=== PATIENT | male | born 1980 | race African-American/Black ===

== ENCOUNTER 2016-08-06 16:31 | Observation (INO) | payer MEDICARE ==
[~2016-08-06] VITALS: Ht 180.3 cm; Wt 80.3 kg
[2016-08-06 19:00] VITALS: BP_SYST 148; RESP 20; TEMP 97.7
[2016-08-06] MEDS ORDERED: ACETAMINOPHEN 325 MG TAB PO PRN (19:35)
[2016-08-06] MEDS ORDERED: ONDANSETRON 4 MG VIAL IV PUSH PRN (19:35)
[2016-08-06 20:32] VITALS: Ht 180.3 cm; Wt 80.3 kg
[2016-08-07 02:00] VITALS: BP_SYST 137; RESP 18; TEMP 97.9
[2016-08-07 02:08] VITALS: BP_SYST 163; RESP 20; TEMP 98.2
[2016-08-07 02:10] VITALS: BP_SYST 154; RESP 20; TEMP 97.7
[2016-08-07 07:15] VITALS: BP_SYST 146; RESP 18; TEMP 98
[2016-08-07] MEDS ORDERED: ALPRAZOLAM 0.25 MG TAB PO SCH (09:30)
[2016-08-07] MEDS ORDERED: BUSPIRONE HCL 15 MG TAB PO SCH (09:30)
[2016-08-07] MEDS ORDERED: QUEtiapine 25 MG TAB PO SCH (09:30)
[2016-08-07] MEDS ORDERED: METOPROLOL TART 100 MG TAB PO SCH (09:30)
[2016-08-07 12:04] VITALS: BP_SYST 148; RESP 16; TEMP 97.7
[2016-08-07 14:29] VITALS: BP_SYST 148; RESP 16; TEMP 97.7
[2016-08-08] MEDS ORDERED: ASPIRIN EC 81 MG TAB PO SCH (09:00)
== END 2016-08-07 09:22 | disposition home or self-care (01) ==
LOC: ENRESERVTM → ENRESERVDT → ENPENDDIS 19:25 → 4THE 19:25
PROVIDERS: ADMIT Internal Medicine Nephrology; ATTEND Internal Medicine Nephrology
CPT/HCPCS: G0378; J2405

== ENCOUNTER 2016-09-04 19:17 | Emergency (ER) | payer MEDICARE ==
[2016-09-04] MEDS ORDERED: LABETALOL 100 MG/20 ML VIAL ONE (21:53)
[2016-09-04] MEDS ORDERED: ONDANSETRON 4 MG VIAL ONE (21:54)
[2016-09-04] MEDS ORDERED: SODIUM CHLORIDE 0.9% 1,000 ML ONE (21:55)
[2016-09-04] MEDS ORDERED: METOCLOPRAMIDE 10 MG/2 ML VIAL ONE (22:26)
[2016-09-04] MEDS ORDERED: DIPHENHYDRAMINE 50 MG/ML VIAL ONE (22:26)
[2016-09-04] MEDS ORDERED: ACETAMINOPHEN 325 MG TAB ONE (22:26)
[2016-09-05] MEDS ORDERED: DICYCLOMINE 20MG/2ML VIAL IM ONE ×2 (00:04→00:24)
== END 2016-09-05 01:17 | disposition home or self-care (01) ==
LOC: ER 19:17
DX: G89.29 Other chronic pain (principal); R10.9 Unspecified abdominal pain; R19.7 Diarrhea, unspecified; R11.2 Nausea with vomiting, unspecified; I13.2 Hypertensive heart and chronic kidney disease with heart failure and with stage 5 chronic kidney disease, or end stage renal disease; I50.9 Heart failure, unspecified; N18.6 End stage renal disease; D63.1 Anemia in chronic kidney disease; Z99.2 Dependence on renal dialysis; Z79.82 Long term (current) use of aspirin; Z79.899 Other long term (current) drug therapy
CPT/HCPCS: 36415; 74022; 80053; 82553; 83690; 83880; 84484; 85025; 87804; 93005; 96361; 96372; 96374; 96375; 99284; J0500